=== PATIENT | male | born 1950 | race Caucasian/White ===

== ENCOUNTER 2017-08-12 07:35 | Day surgery (SDC) | payer BC, OTHER ==
[~2017-08-12] VITALS: Ht 167.6 cm; Wt 82.6 kg
[~2017-08-12 07:35] MED LIST: ASPI1TAB PO; JANU50TA8; SIMV40TA2 PO
[2017-08-12] MEDS ORDERED: NS 1,000 ML IV SCH (07:45)
[2017-08-12] MEDS ORDERED: LIDOCAINE 2% INJ 100 MG/5 ML SDV (FOR ANES.) As Ordered ONE (08:51)
[2017-08-12] MEDS ORDERED: PROPOFOL 200 MG/20 ML VIAL As Ordered ONE (08:51)
--- NOTE | 2017-08-12 09:27 | ROOR ---
Patient Name: Zac Cortes Procedure Date: 08/12/2017 9:09 AM Date of : 1950 Age: 67 Room: [facility] Gender: Male Note Status: Finalized Procedure: Total Colonoscopy to Cecum Indications: Screening for colorectal malignant neoplasm, Last colonoscopy: 2006 Providers: Alexandru Hernández MD Referring MD: RUTH STOUT JR, MD Requesting Provider: Medicines: Monitored Anesthesia Care Complications: No immediate complications. Procedure: Pre-Anesthesia Assessment: - The heart rate, respiratory rate, oxygen saturations, blood pressure, adequacy of pulmonary ventilation, and response to care were monitored throughout the procedure. The Colonoscope was introduced through the anus and advanced to the cecum, identified by appendiceal orifice and ileocecal valve. The colonoscopy was performed without difficulty. The patient tolerated the procedure well. The quality of the bowel preparation was good. Findings: The perianal and digital rectal examinations were normal. Non-bleeding internal hemorrhoids were found during retroflexion. The hemorrhoids were small and Grade I (internal hemorrhoids that do not prolapse). No other significant abnormalities were identified in a careful examination of the remainder of the colon. The exam was otherwise without abnormality on direct and retroflexion views. Impression: - Non-bleeding internal hemorrhoids. - The examination was otherwise normal on direct and retroflexion views. - No specimens collected. - The exam was otherwise normal to the cecum. Recommendation: - Patient has a contact number available for emergencies. The signs and symptoms of potential delayed complications were discussed with the patient. Return to normal activities tomorrow. Written discharge instructions were provided to the patient. - High fiber diet. - Discharge patient to home. - Continue present medications. - Repeat colonoscopy in 10 years for screening purposes. - Return to referring physician. - The findings and recommendations were discussed with the patient's family. Alexandru Hernández MD Alexandru Hernández MD 08/12/2017 9:26:54 AM This report has been signed electronically. Number of Addenda: 0 Note Initiated On: 08/12/2017 9:09 AM Estimated Blood Loss: Estimated blood loss: none.
[2017-08-12 10:04] VITALS: BP 145/73
== END 2017-08-12 10:06 | disposition home or self-care (01) ==
LOC: M OPP 07:35
PROVIDERS: ATTEND Internal Medicine Gastroenterology
DX: Z12.11 Encounter for screening for malignant neoplasm of colon (principal); K64.0 First degree hemorrhoids; E78.5 Hyperlipidemia, unspecified; E11.9 Type 2 diabetes mellitus without complications; Z79.82 Long term (current) use of aspirin; Z79.899 Other long term (current) drug therapy; Z79.84 Long term (current) use of oral hypoglycemic drugs